=== PATIENT | female | born 1945 | race Caucasian/White ===

== ENCOUNTER → 2018-07-13 | Outpatient (CLI) | payer MEDICARE, BC ==
[~2018-07-13] MED LIST: ASPIR-LOW81 MG PO; CALTRATE-600 W600 MG PO; CRESTOR20 MG PO; DALIRESP500 MCG PO; FISH OIL CONC1000 MG PO; LEVOXYL0.075 MG PO; LIPITOR40 MG PO; STIOLTO RESPIMAT4 GM IH; ZEBETA 5MG5 MG PO
== END ==
LOC: COL.LAB 11:54
DX: Z01.812 Encounter for preprocedural laboratory examination (principal); M16.12 Unilateral primary osteoarthritis, left hip

== ENCOUNTER → 2018-07-18 | Outpatient (REF) | payer MEDICARE, BC ==
[2018-07-18 06:28] LABS: COLLECTION METHOD CATHETER
[2018-07-18 06:33] LABS: PH 5 (5-8); SQUAMOUS EPITHELIAL None Seen /hpf; URINE APPEARANCE Clear; URINE BACTERIA None Seen /hpf; URINE BILIRUBIN Negative (NEGATIVE); URINE BLOOD Negative (NEGATIVE); URINE COLOR Yellow; URINE GLUCOSE Negative (NEGATIVE); URINE KETONE Negative (NEGATIVE); URINE LEUKOCYTE ESTERASE Negative (NEGATIVE); URINE NITRATE Negative (NEGATIVE); URINE PROTEIN(semi-quant) Negative (NEGATIVE); URINE RBC 0-2 /hpf; URINE UROBILINOGEN Negative (NEGATIVE)
== END ==
LOC: ZMSC 06:24 → ZCOL.LAB 06:24 → EDSTATUS 13:37
PROVIDERS: Orthopaedic Surgery
DX: Z01.89 Encounter for other specified special examinations (principal)

== ENCOUNTER 2019-06-21 15:52 | Emergency (ER) | payer MEDICARE, BC | END 2019-06-21 16:34 | disposition left against medical advice (07) | LOC: COL.ER 15:52 | DX: Z72.9 Problem related to lifestyle, unspecified (principal) ==

== ENCOUNTER 2023-12-12 05:58 | Day surgery (SDC) | payer MEDICARE, BC ==
[~2023-12-12] VITALS: Ht 165.1 cm; Wt 63.7 kg
[~2023-12-12 05:58] MED LIST changes: +LR 1,000 ML IV SCH
[2023-12-12] MEDS ORDERED: Lidocaine PF 1% (10 MG/ML) 5 ML VIAL ONE (07:16)
[2023-12-12 07:46] VITALS: BP 126/71; PULSE 68; TEMP 97.5
[2023-12-12] MEDS ORDERED: PRINIVIL5 MG PO (08:02)
[2023-12-12] MEDS ORDERED: ASPIRIN E.C. 8181 MG PO (08:02)
[2023-12-12] MEDS ORDERED: BREZTRI AEROS10.7 GM IH (08:04)
[2023-12-12] MEDS ORDERED: ZITHROMAX 250M250 MG PO (08:05)
[2023-12-12] MEDS ORDERED: Lidocaine PF 1% (10 MG/ML) 5 ML VIAL MM ONE (08:26)
[2023-12-12 08:35] VITALS: BP 121/63; PULSE 98; TEMP 97.8
[2023-12-12] MEDS ORDERED: Albuterol 0.083% Neb Soln 2.5 MG/3 ML UD IH ONE (08:45)
[2023-12-12 08:50] VITALS: BP 134/61; PULSE 98
[2023-12-12 09:05] VITALS: BP 143/71; PULSE 100
[2023-12-12 09:20] VITALS: BP 136/57; PULSE 96
--- NOTE | 2023-12-12 09:40 | NUR ---
0835 LYING SUPINE ON CART IN PROCEDURE ROOM WITH HOB ELEVATED 70 DEGREES. AWAKE, ALERT. FREQUENT NON PRODUCTIVE COUGH PRESENT. VITAL SIGNS OBTAINED, O2 THEN APPLIED AT 2L/NC. IN ROOM. DR PABON IN ROOM. VISITS WITH PATIENT AND 0850 NON PRODUCTIVE COUGN REMAINS, BUT LESS FREQUENT. 0905 FREQUENCY OF COUGH CONTINUES TO DECREASE. RT HERE NEBULIZER AEROSOL TREATMENT IN PROGRESS, 0920 TOLERATES PO WATER, DENIES CHEST PAIN INTERMITTENT COUGH. DENIES ANY INCREASED DYSPNEA. DISCHARGE INSTRUCTIONS REVIEWED. PATIENT VERBALIZES UNDERSTANDING. COPY PROVIDED IN DISCHARGE FOLDER 0932 O2 OFF. SITS ON EDGE OF CART. DRESSES SELF. PATIENT HAS OWN PORTABLE O2 IN CAR TO UTILIZE ON DRIVE HOME.
== END 2023-12-12 09:42 | disposition home or self-care (01) ==
LOC: SDCO 05:58
DX: J44.9 Chronic obstructive pulmonary disease, unspecified (principal); J47.9 Bronchiectasis, uncomplicated; R91.8 Other nonspecific abnormal finding of lung field; J98.11 Atelectasis; Z85.3 Personal history of malignant neoplasm of breast; Z87.01 Personal history of pneumonia (recurrent); Z92.3 Personal history of irradiation; Z79.899 Other long term (current) drug therapy; Z87.891 Personal history of nicotine dependence
CPT/HCPCS: J2704; J7120